=== PATIENT | male | born 1995 | race Hispanic/Latino ===

== ENCOUNTER 2017-03-12 01:01 | Emergency (ER) | payer OTHER ==
[~2017-03-12] VITALS: Ht 172.7 cm; Wt 86.2 kg
[2017-03-12 01:13] VITALS: BP 151/80
--- NOTE | 2017-03-12 01:15 | ED GENERAL ADULT ---
History of Present Illness General Chief Complaint: Upper Respiratory Sx/Fever Stated Complaint: PER PT "REALLY BAD SINUS INFECTION" COUGH Source: patient Exam Limitations: no limitations Vital Signs & Intake/Output Vital Signs & Intake/Output Vital Signs Date Time Temp Pulse Resp B/P B/P Pulse O2 O2 Flow FiO2 Mean Ox Delivery Rate 03/12 118 99 03/12 011 99.7 105 20 151/80 99 Room Air Allergies Coded Allergies: NO KNOWN ALLERGIES (04/17/12) Reconcile Medications Albuterol Sulfate (Proventil Hfa) 90 MCG HFA.AER.AD 2 PUF INH Q4 WHEEXING Codeine Phosphate/Guaifenesi (Guaifenesin AC Cough Syrup) 10 MG-100 MG/5 ML LIQUID 2 TSP PO Q8 PRN COUGH Doxycycline Hyclate (Vibramycin) 100 MG CAPSULE 1 CAP PO BID BRONCHITIS/ SINUSITIS Triage Note: 21YO MALE TO TRIAGE W/CO SINUS CONGESTION, SINUS PAIN, EAR PAIN AND SORE THROAT SINCE . RA SAT = 96 NO WHEEZING Triage Nurses Notes Reviewed? yes Onset: Abrupt Duration: day(s): Timing: recent history HPI: 03/12/17 1:42 AM 21-year-old man presents to the emergency department for cough and sore throat, nasal congestion, and generalized malaise. He also has some left ear pain. He has a past medical history for asthma but has not had an asthma attack in many years. No shortness of breath. He has a cough productive of whitish sputum. The onset of the symptoms were abrupt, the duration has been several days, the severity is significant; as his symptoms required him to come to the emergency department for care. On physical exam he has mild tachycardia. O2 sat is 98%. Lungs reveal rhonchi. Pharynx is minimally injected. The tympanic membranes are clear. He does have bilateral sinus tenderness. Past History Medical History Any Pertinent Medical History? see below for history Respiratory: asthma Surgical History Surgical History: non-contributory Psychosocial History What is your primary language Nepali Family History Hx Contributory? No Review of Systems Review of Systems Constitutional: Reports: fever. EENTM: Reports: throat pain. Denies: visual changes. Respiratory: Reports: cough. Denies: short of breath. Cardiovascular: Denies: chest pain. GI: Denies: abdominal pain. Genitourinary: Reports: no symptoms. Musculoskeletal: Reports: muscle pain. Skin: Denies: rash. Neurological/Psychological: Reports: no symptoms. Hematologic/Endocrine: Reports: no symptoms. Immunologic/Allergic: Reports: no symptoms. Physical Exam Physical Exam General Appearance: well developed/nourished, alert, awake, anxious, mild distress Head: atraumatic, tenderness (bilateral maxillary sinuses) Eyes: Bilateral: normal appearance, PERRL, EOMI. Ears, Nose, Throat: pharyngeal erythema Neck: normal inspection, supple, full range of motion Respiratory: normal breath sounds, rhonchi Cardiovascular: tachycardia Peripheral Pulses: 4+ radial (R), 4+ radial (L) Gastrointestinal: soft, non-tender Back: normal range of motion Extremities: normal inspection, normal range of motion, no edema Neurologic/Psych: no motor/sensory deficits, awake, alert, oriented x 3 Skin: intact, normal color, warm/dry Core Measures ACS in differential dx? No CVA/TIA Diagnosis: No Severe Sepsis Present: No Septic Shock Present: No Progress Differential Diagnoses I considered the following diagnoses in my evaluation of the patient: [Sinusitis , pharyngitis, influenza, pneumonia, otitis media] Plan of Care: Patient was treated with doxycycline, Robitussin with codeine, albuterol. I consider the diagnosis of pulmonary embolism-I do not have a clinical suspicion for PE as he has no risk factors and has cough and congestion Initial ED EKG: none Departure Departure Disposition: HOME OR SELF CARE Condition: Stable Clinical Impression Primary Impression: Sinusitis Secondary Impressions: Bronchitis Referrals: PATIENT HAS NO PRIMARY CARE DR (PCP/Family) Departure Forms: Customer Survey General Discharge Information Prescriptions: Current Visit Scripts Albuterol Sulfate (Proventil Hfa) 2 PUF INH Q4 #1 INHAL Doxycycline Hyclate (Vibramycin) 1 CAP PO BID #20 CAP Codeine Phosphate/Guaifenesi (Guaifenesin AC Cough Syrup) 2 TSP PO Q8 PRN COUGH #4 Critical Care Note Critical Care Note Critical Care Time: non-applicable
[2017-03-12] MEDS ORDERED: GUAIFENESIN AC473 M2 PO (01:47)
[2017-03-12] MEDS ORDERED: VIBRAMYCIN100 MG PO (01:47)
[2017-03-12] MEDS ORDERED: PROVENTIL HFA6.7 GM INH (01:47)
== END 2017-03-12 02:00 ==
LOC: ERH 01:01
DX: J32.9 Chronic sinusitis, unspecified (principal); J40 Bronchitis, not specified as acute or chronic